=== PATIENT | female | born 1965 | race Caucasian/White ===

== ENCOUNTER → 2016-08-22 | Outpatient (CLI) | payer BC ==
[~2016-08-22] MED LIST: ASPI81TA2 PO; ESCI20TA30 PO
--- NOTE | 2016-08-23 08:45 | DI ---
Indication: ITS.REASON: M25.561 PAIN IN RT KNEE KNEE RIGHT 3 VIEWS Comparison: None Findings: There is no acute fracture, dislocation or malalignment identified. Minimal soft tissue calcification seen adjacent to the proximal fibula of indeterminate significance. No significant joint effusion or other acute findings appreciated. Impression: No acute osseous abnormality. .
== END ==
LOC: IMA 15:18
PROVIDERS: ATTEND Family Medicine
DX: M25.561 Pain in right knee (principal)